=== PATIENT | female | born 1960 | race Caucasian/White ===

== ENCOUNTER 2023-07-08 13:44 | Emergency (ER) | payer SELFPAY ==
[2023-07-08 13:47] VITALS: BP 155/83; PULSE 89; RESP 18; TEMP 36.5; O2SAT 97; BMI 29.0
[2023-07-08 13:55] VITALS: BP 150/114; PULSE 99; RESP 20; O2SAT 90
--- NOTE | 2023-07-08 14:17 | XRR_ITS ---
PROCEDURE INFORMATION: Exam: XR Right Knee Exam date and time: 07/08/2023 3:53 PM Age: 62 years old Clinical indication: Injury or trauma; Other: Impact injury; Other: Impact to knee; Additional info: Hit with cattle panel TECHNIQUE: Imaging protocol: Radiologic exam of the right knee. Views: 3 views. COMPARISON: No relevant prior studies available. FINDINGS: Bones/joints: AP view demonstrates mild degenerative change laterally. Lateral view demonstrates mild spur or enthesophyte formation anterior superior patella. No fracture or dislocation. Soft tissue swelling is seen anteriorly with findings suggestive of suprapatellar effusion. No abnormal soft tissue calcification is seen. Soft tissues: See Bones/joints finding. XR/XR knee RT 3V* [id number] IMPRESSION: 1. Soft tissue swelling and particularly anteriorly, along with suprapatellar fullness or effusion. 2. No fracture identified.
[2023-07-08 15:24] VITALS: BP 149/95; PULSE 59; RESP 17; TEMP 36.9; O2SAT 99
--- NOTE | 2023-07-08 16:25 | W.ED.EXTPRO ---
HPI - Extremity Problem General: Chief complaint: Extremity Injury, Lower Stated complaint: right knee injury Time Seen by Provider: 07/08/23 16:24 Source: patient Mode of arrival: ambulatory History of Present Illness: This 62-year-old female presents to the ER for evaluation of right knee injury that happened yesterday morning. They were loading some cattle when one of the cattle turned around and hit one of the cattle panels and the panel hit her on the right knee. They continued to load cattle for another hour and a half after the incident. When she got home and sat down, she started feeling pain in the right knee and she discovered it was swollen. There was also a small cut on the medial aspect of the knee. She did not sleep well last night because of the pain. Today, she presents to the ER for evaluation. She has no fever, nausea or any systemic symptoms. Patient denies any other injuries. Associated symptoms: Deny chest pain Review of Systems Const: Denies: chills, body aches or change in appetite Eyes: Denies: change in vision or eye discharge ENMT: Denies: throat pain, dental pain or nasal discharge Card: Denies: chest pain or lightheadedness Musc: Reports: joint pain (right knee), joint swelling (right knee) and limited range of motion (right knee) PFS ED PFSH: Medical History (Updated 07/08/23 @ 17:20 by Zuly Green MD) Anxiety and depression Plantar fasciitis PTSD (post-traumatic stress disorder) Family History (Updated 10/25/19 @ 14:52 by Riddhi Hitchcock LPN) Other Cancer Social History (Updated 10/25/19 @ 14:52 by Riddhi Hitchcock LPN) Smoking and tobacco status: current every day smoker cigarettes Packs smoked per day: 1 Alcohol intake: current Physical Exam Const: COMMON NORMALS: no acute distress, patient oriented x3, no limitations and alert HENMT: COMMON NORMALS: normocephalic HEAD & SCALP: normocephalic Eye: COMMON NORMALS: EOMs intact bilaterally Neck/C-Spine: COMMON NORMALS: full ROM and supple Chest: COMMONS NORMALS: normal inspection of the chest Resp: COMMON NORMALS: normal respiratory effort, No retractions, No use of accessory muscles and clear to auscultation bilaterally AUSCULTATION: clear to auscultation bilaterally Cardio: COMMON NORMALS: regular rate, regular rhythm and No murmurs present (Cardio) RATE: regular rate RHYTHM: regular rhythm GI: COMMON NORMALS: Normal to inspection, nondistended, normoactive bowel sounds present and non-tender : COMMON NORMALS: Yes no CVA tenderness BLADDER/KIDNEY EXAM: Yes no CVA tenderness Back/Pelvis: COMMON NORMALS: no CVA tenderness and no thoracic nor lumbar tenderness Extremity: GENERAL: Yes normal exam except as noted RIGHT LOWER EXTREMITY: Yes knee joint (Swollen right knee. Healed surgical scar on the medial aspect of the knee.) OTHER: Limitation of right knee movement due to pain and swelling. Right knee joint effusion. No distal neurovascular deficit. Neuro: COMMON NORMALS: patient oriented x3 and no focal motor deficits SENSORIUM/ORIENTATION: Yes alert Psych: COMMON NORMALS: mental status grossly normal and cooperative Course Vital Signs: Vital signs: Vital Signs Temperature 98.5 F 07/08/23 15:24 Pulse Rate 59 L 07/08/23 15:24 Respiratory Rate 17 07/08/23 15:24 Blood Pressure 149/95 07/08/23 15:24 Pulse Oximetry 99 07/08/23 15:24 Oxygen Delivery Me thod Room Air 07/08/23 15:24 MDM - Extremity (Nontraumatic) Medical Decision Making Medical decision making: This 62-year-old female presents to the ER for evaluation of right knee injury. X-ray is negative for fracture/dislocation. However, patient has a superficial cut on the medial aspect of the knee that cannot be sutured. Incident occurred well over 24 hours ago. Given the nature of wound ([place] and it does not look clean), prophylactic antibiotics will be given. X-ray is negative for fracture/dislocation. She will be treated symptomatically. She will follow-up with her primary care physician within a week for reevaluation. Return instructions provided. Lab Data Radiology Impressions Knee X-Ray 07/08/23 14:17 IMPRESSION: 1. Soft tissue swelling and particularly anteriorly, along with suprapatellar fullness or effusion. 2. No fracture identified. Discharge Plan Discharge Patient Disposition: Home Clinical Impression: Right knee sprain, Effusion of right knee Condition: Stable Prescriptions: New tramadol 50 mg tablet 25 mg PO Q4H PRN (Reason: pain) Qty: 20 0RF cephalexin 500 mg capsule 500 mg PO TID 7 Days Qty: 21 0RF Discharge Orders: Discharge ED (Routine); Ordered 07/08/23 Ordered By: Zuly Green Discharge Diet: Usual diet Discharge Activity: Resume usual activity and Increase activity as tolerated Patient Instructions: Opioid Safety, Pain Management Activity Restrictions/Additional Instructions: Rest, elevate and ice the knee. Take tramadol as needed for pain. Take Keflex as prescribed. Mobilize with a pair of crutches and start weightbearing as tolerated. You may take [id number] or triple antibiotics for pain. Follow-up with your primary care provider in a week for reevaluation. Return with new or worsening symptoms. Coding Level of Care Code ED Medical Cost Consultant for Armando Aranda
[2023-07-08] MEDS: TRAMadol 50 mg Tablet 100 MG PO (17:16)
[2023-07-08 17:35] VITALS: BP 170/100; PULSE 89; RESP 14; O2SAT 95
== END 2023-07-08 17:35 | disposition home or self-care (01) ==
PROVIDERS: Emergency Provider Family Medicine
DX: S83.91XA Sprain of unspecified site of right knee, initial encounter (principal); M25.461 Effusion, right knee; F17.210 Nicotine dependence, cigarettes, uncomplicated; W20.8XXA Other cause of strike by thrown, projected or falling object, initial encounter
CPT/HCPCS: 73562; 99283; E0114

== ENCOUNTER 2025-06-26 07:29 | Emergency (ER) | payer SELFPAY ==
--- NOTE | 2025-06-26 07:41 | XR_ITS ---
WS: [id number] Exam: XR hand RT min 3V* [id number] Date/Time of Exam: 06/26/2025 7:45 AM Reason For Exam: Pain and swelling DLP: No acute fracture. Moderate degenerative change of the DIP joints. Normal soft tissues. XR/XR hand RT min 3V* [id number] IMPRESSION: 1. No acute fracture. Degenerative changes.
[2025-06-26 08:04] VITALS: BP 153/74; PULSE 76; RESP 17; TEMP 36.6; O2SAT 98; BMI 32.3
[2025-06-26 08:35] LABS: Hematocrit 39.3 % (36-47); Hemoglobin 13.10 g/dL (11.27-16.99); Mean Corpuscular HGB Conc 33.3 g/dL (30-55); Mean Corpuscular Hemoglobin 30.1 pg (27-33); Mean Corpuscular Volume 90.3 fl (85-98); Nucleated Red Blood Cells % 0 %; Platelet Count 366 10^3/cmm (157-399); Red Blood Count 4.35 10^6/uL (3.85-5.65); White Blood Count 9.39 10^3/uL (3.29-11.43)
--- NOTE | 2025-06-26 08:41 | W.ED.ANIMALB ---
HPI - Animal Bite General: Chief Complaint: Animal Bite Stated Complaint: R hand swelling,bite or scratch from cat 2 wks ago Time Seen by Provider: 06/26/25 07:39 History of Present Illness: 64-year-old female presents emergency room with significant swelling to her right hand in the interspace tween the 1st and 2nd metacarpals. Began 2 weeks ago she was bitten or scratched by a cat. Has gotten progressively worse. Her last tetanus shot was 7 years ago. The cat is an indoor cat family pet and has not been vaccinated still with them the original bite was 2 weeks ago has not shown any signs of illness she was not seen after this did not start any antibiotics does not have any rabies vaccination. Associated symptoms: Reports chills and fever(s) Related Data Home Medications ?Medication ?Instructions ?Recorded ?Confirmed No Known Home Medications 06/26/25 06/26/25 Allergies Allergy/AdvReac Type Severity Reaction Status Date / Time clindamycin Allergy ADR-Diarrhe Verified 06/26/25 08:09 a Review of Systems Const: Reports: fever(s), chills, fatigue and malaise Card: Denies: chest pain Resp: Denies: dyspnea GI: Denies: abdominal pain : Denies: dysuria, urinary frequency or urinary urgency Musc: Denies: neck pain or back pain Skin/Breast: Denies: rash PFSH ED PFSH: Medical History PTSD (post-traumatic stress disorder) Anxiety and depression Plantar fasciitis Family History Other Cancer Social History Smoking and tobacco/nicotine status: current every day tobacco/nicotine user cigarettes Packs smoked per day: 1 Alcohol intake: current Physical Exam Const: GENERAL APPEARANCE: cooperative ORIENTATION/CONSCIOUSNESS: Yes awake, Yes oriented to person, Yes oriented to place and Yes oriented to time HENMT: COMMON NORMALS: normocephalic, atraumatic and hearing grossly normal bilaterally HEAD & SCALP: normocephalic and atraumatic Resp: COMMON NORMALS: normal respiratory effort, No retractions, No use of accessory muscles and clear to auscultation bilaterally AUSCULTATION: clear to auscultation bilaterally Cardio: COMMON NORMALS: regular rate, regular rhythm and No murmurs present (Cardio) RATE: regular rate RHYTHM: regular rhythm GI: COMMON NORMALS: Soft to palpation and No hepatosplenomegaly present AUSCULTATION: Yes normoactive bowel sounds PALPATION: Yes Soft to palpation, No Tenderness to palpation present (GI), No Guarding due to palpation present (GI) and Yes No hepatosplenomegaly present Extremity: OTHER: Left hand markedly swollen between the 1st and 2nd metacarpals. Overlying skin is red and inflamed and indurated exquisitely tender to the touch no focal areas of pointing or puncture melton. No epitrochlear lymphadenopathy noted mild tenderness of the axillary lymph nodes. Neuro: SENSORIUM/ORIENTATION: Yes oriented to person, Yes oriented to place and Yes oriented to time Skin: COMMON NORMALS: no rashes or lesions noted GENERAL SKIN EXAM: no rashes or lesions noted Course Vital Signs: Vital signs: Vital Signs Temperature 97.8 F 06/26/25 08:04 Pulse Rate 76 06/26/25 08:04 Respiratory Rate 18 06/26/25 15:37 Blood Pressure 150/89 06/26/25 12:44 Pulse Oximetry 95 06/26/25 15:37 Oxygen Delivery Me thod Room Air 06/26/25 15:37 MDM - Animal Bite Medical Decision Making CT shows abscesses in the hand including probable osteomyelitis. Vital signs have been stable she has been cultured and started on Zosyn. Contacted [facility] the hand surgeon as except are waiting on a bed assignment Patient is due for second dose of Zosyn and has been ordered we are still waiting on bed assignment for transfer to [facility] Medical Records I reviewed the patient's medical records. Lab Data I reviewed the patient's lab results. 06/26/25 08:25 06/26/25 08:25 Radiology Impressions Hand X-Ray 06/26/25 07:41 IMPRESSION: 1. No acute fracture. Degenerative changes. Hand CT 06/26/25 08:47 IMPRESSION: 1. Peripherally enhancing abscess communicating with the second MCP joint. This may be subperiosteal in location. Abscess measures 1.2 x 1.3 cm. 2. Suggestion of early changes of osteomyelitis in the underlying head of the second metacarpal on the thumb side. 3. Diffuse cellulitis and deep soft tissue infection described above Notified Dionte Deleon DO at 06/26/2025 10:05 AM. Laboratory Results WBC 9.39 10^3/uL (3.29-11.43) 06/26/25 08: RBC 4.35 10^6/uL (3.85-5.65) 06/26/25 08: Hgb 13.10 g/dL (11.27-16.99) 06/26/25 08: Hct 39.3 % (36-47) 06/26/25 08: MCV 90.3 fl (85-98) 06/26/25 08:25 MCH 30.1 pg (27-33) 06/26/25 08: MCHC 33.3 g/dL (30-55) 06/26/25 08: RDW 12.6 % (12.1-15.1) 06/26/25 08: Plt Count 366 10^3/cmm (157-399) 06/26/25 08: MPV 9.2 fL (7.4-10.4) 06/26/25 08:25 Neut % (Auto) 76.8 % 06/26/25 08:25 Lymph % (Auto) 14.4 % 06/26/25 08: [place] % (Auto) 6.6 % 06/26/25 08:25 Eos % (Auto) 1.4 % 06/26/25 08: Baso % (Auto) 0.5 % 06/26/25: Neut # (Auto) 7.21 10^3/uL (1.8-7.7) 06/26/25 08:25 Lymph # (Auto) 1.4 10^3/uL (0.8-4.8) 06/26/25 08:25 [place] # (Auto) 0.6 10^3/uL (0.2-0.9) 06/26/25 08: Eos # (Auto) 0.1 10^3/uL (0.0-0.8) 06/26/25 08: Baso # (Auto) 0.1 10^3/uL (0.0-0.1) 06/26/25 08: Nucleated RBC % (auto) 0 % 06/26/25 08:25 Nucleated RBCs # 0.0 /100WBC 06/26/25 08:25 Sodium 134 mmol/L (136-145) L 06/26/25 08:25 Potassium 4.2 mmol/L (3.5-5.1) 06/26/25 08:25 Chloride 98 mmol/L (98-107) 06/26/25 08:25 Carbon Dioxide 24 mmol/L (22-29) 06/26/25 08:25 Anion Gap 16.2 (5-19) 06/26/25 08:25 BUN 8 mg/dL (8-23) 06/26/25 08:25 Creatinine 0.6 mg/dL (0.5-0.9) 06/26/25 08:25 GFR Calculation 100.6 mL/min (90-130) 06/26/25 08:25 Glucose 106 mg/dL (65-115) 06/26/25 08:25 Calculated Osmolality 277 mOsm/kg (285-295) L 06/26/25 08:25 Lactic Acid 0.7 mmol/L (0.5-2.2) 06/26/25 08:25 Calcium 9.3 mg/dL (8.5-10.5) 06/26/25 08:25 Total Bilirubin 0.4 mg/dL (0.15-1.2) 06/26/25 08:25 AST 10 U/L (0-32) 06/26/25 08:25 ALT < 5 U/L (0-33) 06/26/25 08:25 Alkaline Phosphatase 124 U/L (35-105) H 06/26/25 08:25 Total Protein 7.9 g/dL (6.6-8.7) 06/26/25 08:25 Albumin 3.8 g/dL (3.5-5.2) 06/26/25 08:25 Globulin 4.1 g/dL (1.3-4.6) 06/26/25 08:25 All radiology interpretation(s) finalized by discharge Discharge Plan Discharge Patient Disposition: Xfer Short-Term Hosp Clinical Impression: Cat bite, Hand osteomyelitis, right, Cellulitis and abscess of hand Condition: Stable Print Language: Wolof Coding Level of Care Code ED Creative Technologist for Armando Aranda
--- NOTE | 2025-06-26 08:47 | CT_ITS ---
WS: [id number] Contrast-enhanced CT RIGHT hand TECHNIQUE: Contrast-enhanced CT RIGHT hand with coronal and sagittal reformatted images. CLINICAL INFORMATION: Cat bite cellulitis COMPARISON: None. DLP: 127.[address] scans at [facility] use at least one of these dose optimization techniques: automated exposure control; mA and/or kV adjustment per patient size (includes targeted exams where dose is matched to clinical indication); or iterative reconstruction. FINDINGS: Diffuse edema with induration and enhancement in the superficial and deep soft tissues at the thenar eminence. This extends along the dorsal hand between the thumb and index finger. Peripheral enhancing abscess along the thumb side of the index finger involving the second MCP. This communicates with the joint and may be subperiosteal in location. This has a crescenteric shape. Suggestion of early changes of osteomyelitis in the underlying head of the second metacarpal on the thumb side. CT/CT hand RT w con [id number] IMPRESSION: 1. Peripherally enhancing abscess communicating with the second MCP joint. Thi s may be subperiosteal in location. Abscess measures 1.2 x 1.3 cm. 2. Suggestion of early changes of osteomyelitis in the underlying head of the second metacarpal on the thumb side. 3. Diffuse cellulitis and deep soft tissue infection described above Notified Dionte Deleon DO at 06/26/2025 10:05 AM.
[2025-06-26 08:58] LABS: Alanine Aminotransferase < 5 U/L (0-33); Albumin Level 3.8 g/dL (3.5-5.2); Alkaline Phosphatase 124 U/L (35-105); Anion Gap 16.2 (5-19); Aspartate Amino Transferase 10 U/L (0-32); Blood Urea Nitrogen 8 mg/dL (8-23); Calcium 9.3 mg/dL (8.5-10.5); Carbon Dioxide 24 mmol/L (22-29); Chloride 98 mmol/L (98-107); Creatinine Clr Calc Pharmacy 107.4681; Globulin 4.1 g/dL (1.3-4.6); Glucose 106 mg/dL (65-115); Osmolality Calculated 277 mOsm/kg (285-295); Potassium 4.2 mmol/L (3.5-5.1); Sodium 134 mmol/L (136-145); Total Protein 7.9 g/dL (6.6-8.7)
[2025-06-26] MEDS: tetanus-dipt-pertussis 0.5 mL SDV IM (09:16)
[2025-06-26 09:20] VITALS: RESP 18; O2SAT 100
[2025-06-26] MEDS: piperacillin-tazobactam 3.375 GM in sodium chloride 0.9% (plus) 50 ML IV ×2 (09:21→16:06)
[2025-06-26 09:30] LABS: Lactic Sepsis W/Reflex 0.7 mmol/L (0.5-2.2)
[2025-06-26] MEDS: iohexol 350 mg/mL 500 mL Btl (per mL) IV (09:33)
[2025-06-26 12:44] VITALS: BP 150/89; RESP 17; O2SAT 99
[2025-06-26 15:37] VITALS: RESP 18; O2SAT 95
[2025-06-26 18:51] VITALS: BP 154/76; PULSE 87; O2SAT 98
== END 2025-06-26 18:51 | disposition short-term general hospital (02) ==
PROVIDERS: Emergency Provider Family Medicine
DX: M86.8X4 Other osteomyelitis, hand (principal); L03.113 Cellulitis of right upper limb; L02.511 Cutaneous abscess of right hand; W55.01XA Bitten by cat, initial encounter; F17.210 Nicotine dependence, cigarettes, uncomplicated
CPT/HCPCS: 36415; 73130; 73201; 80053; 83605; 85025; 87040; 90471; 90715; 96365; 96366; 99285; J2543